=== PATIENT | female | born 1995 | race African-American/Black ===

== ENCOUNTER 2017-01-02 19:23 | Emergency (ER) | payer OTHER ==
[~2017-01-02] VITALS: Ht 157.5 cm; Wt 51.7 kg
[2017-01-02 20:16] LABS: Basophils # (auto) 0.1 uL; Basophils % (auto) 0.7 % (0.0-2.0); Eosinophils # (auto) 0.1 uL; Eosinophils % (auto) 1.4 % (0.0-7.0); Hematocrit 36.9 % (36.0-46.0); Hemoglobin 12.5 g/dL (12.2-16.2); Lymphocytes # (auto) 4.4 uL; Lymphocytes % (auto) 54.6 % (10.0-50.0); Mean Corpuscular Hemoglobin 30.7 pg (28.0-32.0); Mean Corpuscular Hgb Conc. 33.8 g/dL (32.0-36.0); Mean Corpuscular Volume 90.6 fL (80.0-100.0); Mean Platelet Volume 8.1 fL (7.4-10.4); Monocytes # (auto) 0.6 uL; Neutrophils # (auto) 2.9 uL; Neutrophils % (auto) 36.3 % (37.0-80.0); Platelet Count (auto) 325 10^3/uL (140-450); Red Cell Distribution Width 13.9 % (11.6-16.0)
[2017-01-02 20:16] LABS: Urine Bilirubin Negative (Negative); Urine Blood 2+ /uL (Negative); Urine Color Yellow (Yellow); Urine Glucose Normal (Normal); Urine Ketone Negative (Negative); Urine Nitrite Negative (Negative); Urine RBC 4 /hpf (0 - 4); Urine Squamous Epithelial Cell FEW /hpf (<5); Urine Urobilinogen Normal (Negative); Urine pH 7.5 (5.0-8.0)
[2017-01-02 20:34] LABS: Albumin 3.9 g/dL (3.4-5.0); BUN/Creatinine Ratio 12.5; Calcium 8.4 mg/dL (8.5-10.1); Potassium 3.9 mmol/L (3.5-5.1)
[2017-01-02 20:35] LABS: Bilirubin, Total 0.3 mg/dL (0.2-1.0); Total Protein 7.4 g/dL (6.4-8.2)
[2017-01-02] MEDS ORDERED: SODIUM CHLORIDE 0.9% 1,000 ML IVB ONE (20:42)
[2017-01-02] MEDS ORDERED: HYDROmorphone HCL 2 MG/ML VL IV ONE (20:45)
[2017-01-02] MEDS ORDERED: ONDANSETRON HCL 4 MG/2 ML VIAL IV ONE (20:45)
[2017-01-02 21:14] VITALS: BP 108/52
[2017-01-02] MEDS ORDERED: AZITHROMYCIN 250 MG TAB PO ONE (23:15)
== END 2017-01-03 03:30 | disposition home or self-care (01) ==
LOC: ER 19:23
DX: A74.9 Chlamydial infection, unspecified (principal); Z33.2 Encounter for elective termination of pregnancy; R11.2 Nausea with vomiting, unspecified
CPT/HCPCS: 36415; 76801; 76817; 80053; 81001; 84702; 85025; 96361; 96374; 96375; 99285; J1170; J2405; J7030

== ENCOUNTER 2017-07-04 19:04 | Emergency (ER) | payer OTHER ==
[~2017-07-04] VITALS: Ht 157.5 cm; Wt 54.0 kg
[2017-07-04 19:39] VITALS: BP 109/70
[2017-07-04 20:39] LABS: Urine Bilirubin Negative (Negative); Urine Blood Negative /uL (Negative); Urine Color Yellow (Yellow); Urine Glucose Normal (Normal); Urine Ketone Negative (Negative); Urine Mucus FEW (None Seen); Urine Nitrite Negative (Negative); Urine RBC 5 /hpf (0 - 4); Urine Squamous Epithelial Cell FEW /hpf (<5)
== END 2017-07-04 20:25 | disposition left against medical advice (07) ==
LOC: ER 19:04
DX: N89.8 Other specified noninflammatory disorders of vagina (principal); Z53.21 Procedure and treatment not carried out due to patient leaving prior to being seen by health care provider
CPT/HCPCS: 81001; 81025

== ENCOUNTER 2017-07-05 09:01 | Emergency (ER) | payer OTHER ==
[~2017-07-05] VITALS: Ht 157.5 cm; Wt 54.0 kg
[2017-07-05 09:09] VITALS: BP 141/63
[2017-07-05] MEDS ORDERED: cefTRIAXone SOD 1,000 MG VL IM ONE (10:30)
== END 2017-07-05 10:47 | disposition home or self-care (01) ==
LOC: ER 09:01
DX: N76.0 Acute vaginitis (principal); N39.0 Urinary tract infection, site not specified; Z20.2 Contact with and (suspected) exposure to infections with a predominantly sexual mode of transmission
CPT/HCPCS: 81002; 96372; 99283; J0696

== ENCOUNTER 2017-10-21 18:10 | Emergency (ER) | payer MEDICAID, OTHER ==
[~2017-10-21] VITALS: Ht 154.9 cm; Wt 55.3 kg
[2017-10-21 18:40] VITALS: BP 108/57
[2017-10-21 21:40] LABS: Urine Bacteria NONE SEEN /hpf (None Seen); Urine Blood Negative /uL (Negative); Urine Specific Gravity 1.023 (1.001-1.035); Urine WBC <1 /hpf (0 - 5)
== END 2017-10-21 22:18 | disposition home or self-care (01) ==
LOC: ER 18:10
DX: N76.0 Acute vaginitis (principal)
CPT/HCPCS: 81001; 81025

== ENCOUNTER 2017-12-04 17:12 | Emergency (ER) | payer MEDICAID ==
[2017-12-04 17:22] VITALS: BP 118/71
== END 2017-12-04 19:59 | disposition home or self-care (01) ==
LOC: ER 17:15
DX: N39.0 Urinary tract infection, site not specified (principal)
CPT/HCPCS: 81002

== ENCOUNTER 2017-12-23 19:04 | Emergency (ER) | payer MEDICAID ==
[~2017-12-23] VITALS: Ht 157.5 cm; Wt 54.4 kg
[2017-12-23 19:09] VITALS: BP 129/86
[2017-12-23] MEDS ORDERED: NEOMYCIN-BACITRACIN-POLYM UNITDOSE PKG TOP OINT TOP ONE (19:11)
[2017-12-23] MEDS ORDERED: BACITRACIN TOP OINT 1 UD PKG TOP ONE (19:15)
[2017-12-23] MEDS ORDERED: HYDROcodone-ACET 5/325MG TAB PO ONE (19:15)
[2017-12-23] MEDS ORDERED: BACITRACIN INJ 50000 UNIT VIAL TOP ONE (19:15)
[2017-12-23] MEDS ORDERED: SILVER SULFADIAZINE 1 % TOPICAL CREAM 50GM TOP ONE (19:16)
== END 2017-12-23 23:07 | disposition left against medical advice (07) ==
LOC: ER 19:04
DX: T22.011A Burn of unspecified degree of right forearm, initial encounter (principal); Z53.21 Procedure and treatment not carried out due to patient leaving prior to being seen by health care provider; X08.8XXA Exposure to other specified smoke, fire and flames, initial encounter; Y93.89 Activity, other specified; Y92.89 Other specified places as the place of occurrence of the external cause; Y99.8 Other external cause status

== ENCOUNTER 2019-01-07 09:42 | Emergency (ER) | payer MEDICAID ==
[~2019-01-07] VITALS: Ht 154.9 cm; Wt 58.1 kg
[2019-01-07 10:22] VITALS: BP 98/63
== END 2019-01-07 11:05 | disposition home or self-care (01) ==
LOC: ER 09:42
DX: N39.0 Urinary tract infection, site not specified (principal)